=== PATIENT | female | born 2000 | race Caucasian/White ===

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

== ENCOUNTER → 2021-05-15 | Outpatient (CLI) | payer OTHER | LOC: COL.RAD 11:17 | DX: R10.11 Right upper quadrant pain (principal) ==